=== PATIENT | male | born 1965 ===

== ENCOUNTER 2025-01-13 08:39 | Day surgery (SDC) | payer OTHER ==
[~2025-01-13] VITALS: Ht 185.4 cm; Wt 90.0 kg
[2025-01-13] VITALS (9 sets, daily range): BP systolic 124–146; BP diastolic 50–92
[~2025-01-13 08:39] MED LIST: ATOR40TA PO; BIKTARVY 50-201 EAC1 PO; ELIQUIS5 M2 PO; Flecainide Acet50 MG PO; JARDIANCE25 MG PO; LOPE2C PO; METO50ER PO; PANT40 PO; Prozac40 MG PO; ZYRTEC10 M2 PO
[2025-01-13] MEDS ORDERED: Nicotine 21 MG PATCH TOP ONE (08:55)
--- NOTE | 2025-01-13 09:09 | NUR ---
PT REQUESTED NICOTINE PATCH D/T SMOKING UP TO 2 PPD. NEW ORDERS GIVEN. PATCH PLACED ON PT L SHOULDER. VSS. NADN.
[2025-01-13] MEDS ORDERED: INSULANI SC (09:16)
[2025-01-13] MEDS ORDERED: NS 1,000 ML IV ONE ×2 (09:21→10:01)
[2025-01-13] MEDS ORDERED: NS 250 ML IV ONE (09:21)
[2025-01-13] MEDS ORDERED: FentaNYL Citrate 50 MCG/ML 2 ML Injection ONE ×2 (10:00→11:03)
[2025-01-13] MEDS ORDERED: Midazolam HCl 1MG / ML 2ML Vial ONE ×2 (10:00→11:05)
[2025-01-13] MEDS ORDERED: Heparin Sodium 1000 Units/ML 10ML MDV ONE ×2 (10:01→11:12)
[2025-01-13] MEDS ORDERED: Clopidogrel Bisulfate 300 MG Cap ONE (11:57)
--- NOTE | 2025-01-13 14:15 | NUR ---
PT AND MOTHER VERBALIZES UNDERSTANDING WRITTEN AND VERBAL INSTRUCTIONS. DENIES QUESTIONS OR CONCERNS. PT DRESSES SELF WITHOUT DIFF. PT IV DC'D. CATH INTACT. PRESSURE DSG APPLIED. PT R FEMORAL AND L PEDAL SITES REMAINS C/D/I. NO BLEEDING OR HEMATOMA. VSS. NADN. PT AMBULATES TO RESTROOM AND BACK WITHOUT DIFF. PT WILL DC TO HOME VIA BY RIDE.
== END 2025-01-13 14:25 | disposition home or self-care (01) ==
LOC: MHTC 08:39
DX: E11.51 Type 2 diabetes mellitus with diabetic peripheral angiopathy without gangrene (principal); I70.222 Atherosclerosis of native arteries of extremities with rest pain, left leg; I48.91 Unspecified atrial fibrillation; E78.5 Hyperlipidemia, unspecified; F17.210 Nicotine dependence, cigarettes, uncomplicated; Z88.5 Allergy status to narcotic agent; Z88.8 Allergy status to other drugs, medicaments and biological substances; Z79.01 Long term (current) use of anticoagulants; Z79.899 Other long term (current) drug therapy
CPT/HCPCS: 36140; 36200; 37226; 37252; 75625; 75716; 75774; 76937; 82947; 99152; 99153; A9270; C1725; C1753; C1760; C1769; C1874; C1887; C1894; C2623; J1644; J2250; J3010; J7030; J7050; Q9967